=== PATIENT | female | born 1970 ===

== ENCOUNTER 2024-11-26 08:15 | Inpatient (IN) | payer OTHER ==
[~2024-11-26] VITALS: Ht 157.5 cm; Wt 81.6 kg
[~2024-11-26 08:15] MED LIST: INTESTINEX1 CAP PO; LEVSIN/SL0.125 MG PO; PREVACID30 MG PO; SEPTRA DS TABLE1 TAB PO
[2024-11-26] MEDS ORDERED: METFORMIN HCL500 M3 PO (09:23)
[2024-11-26] MEDS ORDERED: SYNTHROID88 MCG PO (09:23)
[2024-11-26] MEDS ORDERED: PEPCID40 MG PO (09:23)
[2024-11-26] MEDS ORDERED: GRALISE600 MG PO (09:24)
[2024-11-26] MEDS ORDERED: ZOCOR40 MG PO (09:24)
[2024-11-26 09:35] LABS: PH,URINE 5.5 (5.0-8.0); URINE APPEARANCE Clear; URINE BILIRRUBIN Negative (NEGATIVE); URINE BLOOD Negative; URINE COLOR Yellow; URINE GLUCOSE Negative (NEGATIVE); URINE KETONE Negative (NEGATIVE); URINE LEUKOCYTE Small; URINE NITRATE Negative; URINE PROTEIN Negative (NEGATIVE); URINE UROBILINOGEN 0.2 E.U./dl
[2024-11-26 09:37] LABS: HEMATOCRIT 40.8 % (36.0-45.00); HEMOGLOBIN 14.3 g/dL (12.0-15.00); MEAN CELL VOLUME 83.4 fL (80.00-100.00); MEAN CORPUSCULAR HEMOGLOBIN 29.1 pg (27.00-32.0); PLATELET COUNT 274 K/uL (150-450); RED CELL DISTRIBUTION WIDTH 14.7 % (11.5-14.5)
[2024-11-26 09:39] LABS: URINE EPITHELIAL CELLS 11.8 uL (0.0-38.8); URINE WBC 12.6 uL (0.0-23.2)
[2024-11-26 09:43] VITALS: BP 117/79
[2024-11-26 09:47] LABS: URINE BACTERIA > 9821.5 uL (0.0-1933); URINE CAST 0.14 uL (0.0-1.40); URINE RBC 1.1 uL (0.0-20.8)
[2024-11-26 09:53] LABS: PARTIAL THROMBOPLASTIN TIME 27.9 SECONDS (22.0-34.0); PROTHROMBIN TIME 10.9 SECONDS (9.0-11.5)
[2024-11-26 10:16] LABS: ALBUMIN 3.9 gm/dL (3.4-5.0); BILIRUBIN TOTAL 0.38 mg/dL (0.3-1.2); CALCIUM 10.1 mg/dL (8.5-10.1); CREATININE SERUM 0.78 mg/dL (0.55-1.02); GFR 76.68; POTASSIUM 4.4 mEq/L (3.5-5.1); TOTAL PROTEIN 7.9 gm/dL (6.4-8.2)
[2024-12-15] MEDS ORDERED: METRONIDAZOLE/SODIUM CHLORIDE 500 MG/100 ML PIGGYBACK IV ONE (07:32)
[2024-12-15] MEDS ORDERED: BUPIVACAINE HCL/MPF 0.5% 30ML VIAL ONE (07:32)
[2024-12-15] MEDS ORDERED: CEFAZOLIN SODIUM 1,000 MG VIAL ONE (07:32)
[2024-12-15] MEDS ORDERED: BUPIVACAINE HCL 30 ML VIAL IJ ONE (09:00)
[2024-12-15] MEDS ORDERED: CEFAZOLIN SODIUM 1,000 MG in 0.9 % SODIUM CHLORIDE 50 ML IV ONE (09:00)
[2024-12-15] MEDS ORDERED: METRONIDAZOLE/SODIUM CHLORIDE 100 ML IV ONE (09:00)
[2024-12-15] MEDS ORDERED: MORPHINE SULFATE 4 MG/ML CARTRIDGE IV PRN (10:45)
[2024-12-15] MEDS ORDERED: ACETAMINOPHEN 500 MG GEL..CAP PO SCH (12:00)
[2024-12-15] MEDS ORDERED: ENOXAPARIN SODIUM 40 MG/0.4 ML SYRINGE SUBCUTANEO SCH (17:00)
[2024-12-15 18:26] VITALS: BP 119/69; O2SAT 99
[2024-12-15] MEDS ORDERED: METRONIDAZOLE/SODIUM CHLORIDE 500 MG/100 ML PIGGYBACK IV SCH (21:00)
[2024-12-16] VITALS: BP 93/61; O2SAT 99
[2024-12-16 08:00] VITALS: BP 96/61; O2SAT 96
[2024-12-16] MEDS ORDERED: CEFTRIAXONE SODIUM 2,000 MG VIAL IV SCH (09:00)
[2024-12-16] MEDS ORDERED: DEXTROSE 50 % IN WATER 0.5 G/ML DISP.SYRIN IV PRN (11:00)
[2024-12-16] MEDS ORDERED: INSULIN LISPRO 1,000 UNIT/10 ML UNITS SUBCUTANEO PRN (11:00)
[2024-12-16 16:27] VITALS: BP 108/67; O2SAT 97
[2024-12-17] VITALS: BP 96/63; O2SAT 95
[2024-12-17 08:48] VITALS: BP 92/67; O2SAT 99
== END 2024-12-17 11:35 | disposition home or self-care (01) | DRG 331 ==
LOC: SURH 12-06 08:15 → O/R 12-15 05:04 → SURG 12-15 17:49
PROVIDERS: ADMIT Surgery; ATTEND Surgery
PROC: 0DBP4ZZ Excision of Rectum, Percutaneous Endoscopic Approach (ICD-10-PCS; 2024-12-15)
PROC: 0DJD8ZZ Inspection of Lower Intestinal Tract, Via Natural or Artificial Opening Endoscopic (ICD-10-PCS; 2024-12-15)
PROC: 0DTN4ZZ Resection of Sigmoid Colon, Percutaneous Endoscopic Approach (ICD-10-PCS; principal; 2024-12-15 08:30)
DX: K63.5 Polyp of colon (principal)